=== PATIENT | female | born 1995 | race Caucasian/White ===

== ENCOUNTER 2018-07-11 13:47 | Emergency (ER) | payer SELFPAY ==
[2018-07-11 13:57] VITALS: BP 107/69
--- NOTE | 2018-07-11 13:58 | Emergency Department Report ---
Chief Complaint: Nausea/Vomiting/Diarrhea Stated Complaint: DIARRHEA/NAUSEA Time Seen by Provider: 07/11/18 13:54 - HPI History of Present Illness: This is a 23 y.o. female that presents with N/V/D since yesterday. Patient was seen at [facility] today and sent here for volume depletion. - Exam Vital Signs: Vital Signs 07/11/18 13:54 Temperature 98.6 F Pulse Rate 120 H Respiratory 18 Rate Blood Pressure 107/69 O2 Sat by Pulse 97 Oximetry MSE screening note: Focused history and physical exam performed. Due to findings the following was ordered: Labs ACC for further evaluation ED Disposition for MSE Condition: Stable
[2018-07-11 14:19] LABS: Basophils % (Auto) 0.3 % (0.0-1.8); Eosinophils % (Auto) 0.2 % (0.0-4.3); Hematocrit 43.2 % (30.3-42.9); Hemoglobin 14.5 gm/dl (10.1-14.3); Lymphocytes # (Auto) 0.5 K/mm3 (1.2-5.4); Lymphocytes % (Auto) 6.9 % (13.4-35.0); Mean Corpuscular HGB Conc 34 % (30-34); Mean Corpuscular Hemoglobin 29 pg (28-32); Mean Corpuscular Volume 88 fl (79-97); Monocytes # (Auto) 0.4 K/mm3 (0.0-0.8); Monocytes % (Auto) 6.2 % (0.0-7.3); Platelet Count 267 K/mm3 (140-440); Red Blood Count 4.92 M/mm3 (3.65-5.03); Red Cell Distribution Width 13.6 % (13.2-15.2)
[2018-07-11 14:37] LABS: BUN/Creatinine Ratio 15; Blood Urea Nitrogen 9 mg/dL (7-17); Calcium 8.8 mg/dL (8.4-10.2); Hemolysis Index 54
[2018-07-11 15:02] LABS: Bacteria,Urine 2+ /HPF (Negative); Bilirubin,Urine NEG (Negative); Blood,Urine SM (Negative); Color,Urine Amber (Yellow); Mucus,Urine 2+ /HPF; Urobilinogen,Urine < 2.0 mg/dL (<2.0)
[2018-07-11 15:04] LABS: HCG Qualitative,Urine Negative (Negative)
[2018-07-11] MEDS ORDERED: ZOFRAN ODT PO ONE (16:24)
[2018-07-11] MEDS ORDERED: ZOFRAN ODT ONE (16:27)
--- NOTE | 2018-07-11 16:38 | Emergency Department Report ---
Vomiting/Diarrhea - HPI Chief Complaint: Nausea/Vomiting/Diarrhea Stated Complaint: DIARRHEA/NAUSEA Time Seen by Provider: 07/11/18 13:54 Duration: 2 Days Severity: mild Nausea/Vomiting Severity: Mild Diarrhea Severity: Mild Pain Location: Epigastric Pain Severity: Mild Symptoms: Yes Watery Diarrhea, Yes Able to Tolerate Fluids, Yes Recent Unusual Foods, No Bloody diarrhea, No Fever, No Recent Untreated Water, No Recent use of Antibiotics, No Family w/ Similar Symptoms, No Contacts w/ Similar Symptoms, No Rash, No Hematuria, No Recent URI Symptoms Other History: This is a 23-year-old female who presents to ED complaining of watery loose stools today. Patient states last respiratory: He denies unusual food was Tuesday night. She denies fever/vomiting ED Review of Systems ROS: Stated complaint: DIARRHEA/NAUSEA Other details as noted in HPI Comment: All other systems reviewed and negative ED Past Medical Hx - Past Medical History Hx Headaches / Migraines: Yes - Surgical History Additional Surgical History: hernia repair - Social History Smoking Status: Never Smoker Substance Use Type: None - Medications Home Medications: Home Medications Medication Instructions Recorded Confirmed Last Taken Type Fluticasone Propionate [Flonase] 100 mcg NS QDAY #1 spray.susp 03/24/14 Unknown Rx Ibuprofen [Motrin] 600 mg PO Q8H PRN #14 tablet 03/24/14 Unknown Rx Loratadine [Claritin] 10 mg PO DAILY #10 tablet 03/24/14 Unknown Rx traMADol [Ultram] 50 mg PO Q6HR PRN #14 tablet 03/24/14 Unknown Rx Ciprofloxacin HCl [Ciprofloxacin 500 mg PO Q12HR #14 tab 07/11/18 Unknown Rx TAB] Ibuprofen [Motrin] 800 mg PO Q8HR #30 tablet 07/11/18 Unknown Rx Mag Hydrox/Aluminum Hyd/Simeth 15 ml PO Q6H #1 oral.susp 07/11/18 Unknown Rx [Maalox Advanced Suspension] Vomiting Diarrhea Exam - Exam General: Vital signs noted. No distress. Alert and acting appropriately. HEENT: Yes Moist Mucous Membranes, No Pharyngeal Erythema, No Pharyngeal Exudates, No Rhinorrhea, No Conjuctival Injection, No Frontal Tenderness, No Maxillary Tenderness Neck: No Adenopathy, No Rigidity Lungs: Yes Clear Lung Sounds, Yes Good Air Exchange, No Wheezes, No Stridor, No Cough, No Nasal Flaring, No Retractions, No Use of Accessory Muscles Heart exam: Regular: Yes, Murmur: No, Tachycardia: No Abdomen: Tenderness: No (on all quadrants), Peritoneal Signs: No, Distention: No, Hyperactive Bowel sounds: No Skin exam: Rash: No, Edema: No, Normal turgor: Yes Neurologic: Alert and oriented, no deficits. Musculoskeletal: Unremarkable. ED Course Vital Signs 07/11/18 13:54 Temperature 98.6 F Pulse Rate 120 H Respiratory 18 Rate Blood Pressure 107/69 O2 Sat by Pulse 97 Oximetry ED Medical Decision Making - Lab Data Result diagrams: 07/11/18 14:07 07/11/18 14:07 Laboratory Last Values WBC 7.0 K/mm3 (4.5-11.0) 07/11/18 14:07 RBC 4.92 M/mm3 (3.65-5.03) 07/11/18 14:07 Hgb 14.5 gm/dl (10.1-14.3) H 07/11/18 14:07 Hct 43.2 % (30.3-42.9) H 07/11/18 14:07 MCV 88 fl (79-97) 07/11/18 14:07 MCH 29 pg (28-32) 07/11/18 14:07 MCHC 34 % (30-34) 07/11/18 14:07 RDW 13.6 % (13.2-15.2) 07/11/18 14:07 Plt Count 267 K/mm3 (140-440) 07/11/18 14:07 Lymph % (Auto) 6.9 % (13.4-35.0) L 07/11/18 14:07 Parke % (Auto) 6.2 % (0.0-7.3) 07/11/18 14:07 Eos % (Auto) 0.2 % (0.0-4.3) 07/11/18 14:07 Baso % (Auto) 0.3 % (0.0-1.8) 07/11/18 14:07 Lymph # 0.5 K/mm3 (1.2-5.4) L 07/11/18 14:07 Parke # 0.4 K/mm3 (0.0-0.8) 07/11/18 14:07 Eos # 0.0 K/mm3 (0.0-0.4) 07/11/18 14:07 Baso # 0.0 K/mm3 (0.0-0.1) 07/11/18 14:07 Seg Neutrophils % 86.4 % (40.0-70.0) H 07/11/18 14:07 Seg Neutrophils # 6.0 K/mm3 (1.8-7.7) 07/11/18 14:07 Sodium 137 mmol/L (137-145) 07/11/18 14:07 Potassium 3.2 mmol/L (3.6-5.0) L 07/11/18 14:07 Chloride 102.6 mmol/L (98-107) 07/11/18 14:07 Carbon Dioxide 21 mmol/L (22-30) L 07/11/18 14:07 Anion Gap 17 mmol/L 07/11/18 14:07 BUN 9 mg/dL (7-17) 07/11/18 14:07 Creatinine 0.6 mg/dL (0.7-1.2) L 07/11/18 14:07 Estimated GFR > 60 ml/min 07/11/18 14:07 BUN/Creatinine Ratio 15 % 07/11/18 14:07 Glucose 106 mg/dL (65-100) H 07/11/18 14:07 Calcium 8.8 mg/dL (8.4-10.2) 07/11/18 14:07 Urine Color Mam[place] (Yellow) 07/11/18 14:18 Urine Turbidity Cloudy (Clear) 07/11/18 14:18 Urine pH 5.0 (5.0-7.0) 07/11/18 14:18 Ur Specific [place] 1.032 (1.003-1.030) H 07/11/18 14:18 Urine Protein 30 mg/dl mg/dL (Negative) 07/11/18 14:18 Urine Glucose (UA) Neg mg/dL (Negative) 07/11/18 14:18 Urine Ketones Neg mg/dL (Negative) 07/11/18 14:18 Urine Blood Sm (Negative) 07/11/18 14:18 Urine Nitrite Neg (Negative) 07/11/18 14:18 Urine Bilirubin Neg (Negative) 07/11/18 14:18 Urine Urobilinogen < 2.0 mg/dL (<2.0) 07/11/18 14:18 Ur Leukocyte Esterase Lg (Negative) 07/11/18 14:18 Urine WBC (Auto) 19.0 /HPF (0.0-6.0) H 07/11/18 14:18 Urine RBC (Auto) 31.0 /HPF (0.0-6.0) 07/11/18 14:18 U Epithel Cells (Auto) 26.0 /HPF (0-13.0) H 07/11/18 14:18 Urine Bacteria (Auto) 2+ /HPF (Negative) 07/11/18 14:18 Urine WBC Clumps 2+ /HPF 07/11/18 14:18 Urine Mucus 2+ /HPF 07/11/18 14:18 Urine HCG, Qual Negative (Negative) 07/11/18 14:18 - Medical Decision Making 23-year-old female presents watery loose stools/urinary tract infection Urinalysis shows signs of infection. Patient has a nontender abdomen different radiology was not warranted Discussed findings with the patient. All lab work within normal limits. Discussed the patient will follow up with primary care physician. Critical care attestation.: If time is entered above; I have spent that time in minutes in the direct care of this critically ill patient, excluding procedure time. ED Disposition Clinical Impression: UTI (urinary tract infection), Diarrhea Disposition: - TO HOME OR SELFCARE Is pt being admited?: No Does the pt Need Aspirin: No Condition: Stable Instructions: Urinary Tract Infection in Women (ED), Gastroenteritis (ED), Acute Diarrhea (ED), Food Poisoning (ED) Additional Instructions: Make sure to follow up with the primary care physician as discussed. Take all your medications as you've been prescribed. She continue to monitor blood pressure daily. If you have any worsening symptoms or develop new symptoms please return to ED immediately. Prescriptions: Ciprofloxacin HCl [Ciprofloxacin TAB] 500 mg PO Q12HR #14 tab Mag Hydrox/Aluminum Hyd/Simeth [Maalox Advanced Suspension] 15 ml PO Q6H #1 oral.susp Ibuprofen [Motrin] 800 mg PO Q8HR #30 tablet Referrals: SUNIL COTTRELL MD [Primary Care Provider] - 3-5 Days [facility] [Outside] - 3-5 Days [facility] [Outside] - 3-5 Days Forms: Work/School Release Form(ED) Time of Disposition: 16:44
== END 2018-07-11 19:55 | disposition home or self-care (01) ==
LOC: ED 13:47
DX: N39.0 Urinary tract infection, site not specified (principal); G43.909 Migraine, unspecified, not intractable, without status migrainosus
CPT/HCPCS: 36415; 80048; 81001; 81025; 85025; 99283; Q0162